=== PATIENT | male | born 1965 | race Caucasian/White ===

== ENCOUNTER 2019-07-03 17:01 | Emergency (ER) | payer OTHER ==
[~2019-07-03] VITALS: Ht 190.5 cm; Wt 86.2 kg
[~2019-07-03 17:01] MED LIST: ANAPROX DS550 MG PO; ANTIDEPRESSANT; ANXIETY RELIEF1 PEL PO; BACTRIM DS 8001 TA1 PO; CIPRO500 MG PO; FLEXERIL10 MG PO; MEDROL DOSEPAK4 MG PO; NKHM; PEPCID20 MG PO; TOBREX OPHTH S2.5 ML OPH; VICODIN 5/500 505 MG PO; ZITHROMAX500 MG PO; [UNRECOGNIZED DRUG - REMARK]
[2019-07-03 17:56] LABS: BASO # 0.1 10*3/uL (0.0-0.1); BASO % 0.9 % (0.0-1.0); EOS # 0.2 10*3/uL (0.0-0.4); HEMATOCRIT 44.3 % (42.0-52.0); HEMOGLOBIN 14.9 g/dl (14.0-18.0); LYMPH # 1.5 10*3/uL (1.3-4.4); LYMPH % 28.1 % (27.0-41.0); MEAN CELL VOLUME 98.2 fl (80.0-94.0); MEAN CORPUSCULAR HGB CONC 33.6 g/dl (33.0-37.0); MEAN PLATELET VOLUME 9.4 fl (9.6-12.3); MONO # 0.4 10*3/uL (0.1-1.0); MONO % 6.9 % (3.0-9.0); NEUT # 3.3 10*3/uL (2.3-7.9); NEUT % 60.9 % (47.0-73.0); PLATELET COUNT AUTOMATED 209 10*3/uL (130-400); RED BLOOD COUNT 4.51 10*6/uL (4.50-5.90); RED CELL DISTRI WIDTH 12.7 % (0-14.5); WHITE BLOOD COUNT 5.4 10*3/uL (4.8-10.8)
[2019-07-03 18:18] LABS: ALBUMIN 4.2 gm/dl (3.1-4.5); ALKALINE PHOSPHATASE 81 U/L (45-117); BUN 16 mg/dl (7-24); CHLORIDE 108 mmol/L (98-107); CREATININE 1.13 mg/dL (0.70-1.30); POTASSIUM 4.5 mmol/L (3.5-5.1); SGOT/AST 16 IU/L (3-35); SGPT/ALT 31 U/L (12-78); SODIUM 140 mmol/L (136-145)
[2019-07-03 18:19] LABS: FREE T4 0.83 ng/dl (0.76-1.46)
== END 2019-07-03 19:18 | disposition home or self-care (01) ==
LOC: ED 17:01
PROVIDERS: Physician Assistant
DX: B27.90 Infectious mononucleosis, unspecified without complication (principal); I10 Essential (primary) hypertension; E78.00 Pure hypercholesterolemia, unspecified; F17.200 Nicotine dependence, unspecified, uncomplicated; Z88.0 Allergy status to penicillin

== ENCOUNTER 2022-10-03 21:41 | Emergency (ER) | payer OTHER ==
[~2022-10-03] VITALS: Ht 187.9 cm; Wt 83.9 kg
[2022-10-03] MEDS ORDERED: ERYTHROMYCIN OPH1 GM OPH (22:12)
== END 2022-10-03 22:19 | disposition home or self-care (01) ==
LOC: ED 21:41
DX: H00.015 Hordeolum externum left lower eyelid (principal); Z88.0 Allergy status to penicillin